=== PATIENT | female | born 1995 | race Caucasian/White ===

== ENCOUNTER 2018-09-02 08:08 | Emergency (ER) | payer MEDICAID, OTHER ==
[2018-09-02] MEDS ORDERED: azithromycin 250mg tablet PO ONE (08:40)
[2018-09-02] MEDS ORDERED: CefTRIAXone 1000mg IM Kit (w/lidocaine diluent) IM ONE (08:40)
[2018-09-02 10:08] VITALS: BP 132/78
[2018-09-02 11:42] LABS: CLARITY,URINE CLOUDY (Clear); COLOR,URINE YELLOW (Yellow); GLUCOSE, URINE NEGATIVE (Neg); KETONES,URINE NEGATIVE (Neg); LEUKOCYTE ESTERASE ,URINE NEGATIVE (Neg); NITRITES, URINE NEGATIVE (Neg); OCCULT BLOOD,URINE NEGATIVE (Neg); PROTEIN,URINE NEGATIVE (Neg); UROBILINOGEN,URINE 0.2 E.U/dL (0.2-1.0)
[2018-09-02 11:43] LABS: UA COLLECTION TYPE CLN CATCH MIDSTREAM
[2018-09-02 11:47] LABS: MUCUS STRANDS MANY /LPF (Neg); SQUAMOUS EPITHELIAL CELL,UR MANY /LPF (FEW)
[2018-09-02 11:48] LABS: BACTERIA,URINE 2+ /HPF (Neg); RBC,URINE 0-2 /HPF (0-2); WBC,URINE 0-4 /HPF (0-4)
== END 2018-09-02 10:11 | disposition home or self-care (01) ==
LOC: ER 08:09
DX: Z11.3 Encounter for screening for infections with a predominantly sexual mode of transmission (principal); R10.33 Periumbilical pain; R11.0 Nausea
CPT/HCPCS: 36415; 81001; 87491; 87591; 96372; 99283; J0696